=== PATIENT | female | born 1995 | race Caucasian/White ===

== ENCOUNTER 2022-12-12 03:10 | Emergency (ER) | payer OTHER, SELFPAY ==
[2022-12-12 03:17] VITALS: BP 127/65; PULSE 98; RESP 22; TEMP 37.7; O2SAT 100; BMI 24.9
--- NOTE | 2022-12-12 03:20 | ED.GENADULT ---
HPI - General Adult General Chief complaint: Recheck/Abnormal Lab/Rx Stated complaint: post-op bleed Time Seen by Provider: 12/12/22 03:20 Source: patient Mode of arrival: EMS Limitations: no limitations History of Present Illness HPI narrative: Patient is a 27-year-old female who yesterday underwent a plastic surgery to include liposuction and a tummy tuck and also muscular abdominal repair. She is a binder in place. She is 2 drains. She states that she has been bleeding over the past couple hours. She is having some significant discomfort but this is not new. She attempted to get hold of the operative provider but no one called her back. Related Data Allergies Allergy/AdvReac Type Severity Reaction Status Date / Time No Known Drug Allergies Allergy Verified 12/12/22 04:55 Review of Systems Constitutional Constitutional: Reports system reviewed and no additional complaints, except as documented Gastrointestinal Gastrointestinal: Reports system reviewed and no additional complaints, except as documented Integumentary/Breasts Skin/Breast: Reports system reviewed and no additional complaints, except as documented Neurologic Neurologic: Reports system reviewed and no additional complaints, except as documented Hematologic/Lymphatic On Anticoagulants: No Exam Initial Vital Signs Initial Vital Signs: Vital Signs Temperature 99.9 F H 12/12/22 03:17 Pulse Rate 98 H 12/12/22 03:17 Respiratory Rate 22 12/12/22 03:17 Blood Pressure 127/65 12/12/22 03:17 Pulse Oximetry 100 12/12/22 03:17 Oxygen Delivery Method Room Air 12/12/22 03:17 Const General: cooperative, comfortable and No ill appearing HENAL Head: normal to inspection and normocephalic GI Inspection: normal to inspection Other: Abdominal binder in place. DARA drains coming from each side of the lower abdomen. Skin Other: Surgical incisions covered with clean bandages. We does seem to be some oozing coming from the DARA drains in the lower abdomen. Extrem General: capillary refill normal Course Orders Ordered: Discontinued Medications Hydrocodone Bitart/Acetaminophen (Hydrocodone/Acet 5/325 Tablet) 1 tab PO NOW ONE Stop: 12/12/22 04:40 Last Admin: 12/12/22 04:44 Dose: 1 tab Documented By: ALEXANDER Vital Signs Vital signs: Vital Signs - 8 hr 12/12/22 03:17 12/12/22 06:15 Temperature 99.9 F H Pulse Rate 98 H 97 H Respiratory Rate 22 16 Blood Pressure 127/65 125/79 Pulse Oximetry 100 100 Oxygen Delivery Method Room Air Room Air Medical Decision Making MDM Narrative Medical decision making narrative: It appears that the patient has been oozing from the DARA sites in the lower abdomen. No fevers. The rest of her surgical bandages appear well and clean and intact. She was observed here in the emergency department for an extended period of time without any apparent continued bleeding. The patient was able to get in touch with the operative provider who gave her instructions. The drains appear to be working appropriately. We will discharge patient home to continue with postoperative instructions given to her. She was given return precautions. She expressed understanding and agreement. Discharge Plan Departure Patient Disposition: Home Clinical Impression: Post-operative haemorrhage Activity Restrictions/Additional Instructions: Recommend that you follow all of the postoperative instructions given to you by the surgeon who performed the procedures. Keep all of your scheduled medical appointments. Return to the emergency department for new or worsening symptoms. Stand Alone Forms: Patient Portal/API
[2022-12-12] MEDS: HYDROCODONE/ACET 5/325 TABLET 1 TAB PO (04:44)
--- NOTE | 2022-12-12 05:40 | PC.NURSE ---
SPAR CAP BEVELER note: Called and left [address] Selby her surgeon.
[2022-12-12 06:15] VITALS: BP 125/79; PULSE 97; RESP 16; O2SAT 100
== END 2022-12-12 06:15 | disposition home or self-care (01) ==
PROVIDERS: Emergency Provider Emergency Medicine
DX: L76.22 Postprocedural hemorrhage of skin and subcutaneous tissue following other procedure (principal)
CPT/HCPCS: 99283

== ENCOUNTER → 2024-02-21 09:42 | Outpatient (CLI) | payer OTHER, SELFPAY ==
[2024-02-21 10:20] LABS: Add Manual Diff / Slide Review NO; Basophils Absolute Auto 0 /uL (0-100); Basophils Percent Auto 0.6 % (0-2); Eosinophils Absolute Auto 100 /uL (0-450); Eosinophils Percent Auto 1.8 % (2-4); Hematocrit 42.7 % (36-46); Hemoglobin 14.8 g/dL (12.0-16.0); Lymphocytes Absolute Auto 1900 /uL (1100-4500); Lymphocytes Percent Auto 39.1 % (25-40); Mean Corpuscular HGB Conc 34.7 % (30-36); Mean Corpuscular Hemoglobin 32.2 PG (26-34); Monocytes Absolute Auto 300 /uL (0-900); Neutrophils Absolute Auto 2500 /uL (1500-7000); Neutrophils Percent Auto 51.5 % (50-75); Platelet Count 235 X10^3/uL (150-400); Red Blood Cell Count 4.59 X10^6/uL (4.0-5.2); Red Cell Distribution Width 12.3 % (11.6-14.8); White Blood Cell Count 4.8 X10^3/uL (4.5-11.0)
[2024-02-21 10:46] LABS: Alanine Aminotransferase 21 IU/L (<35); Albumin 4.7 g/dL (3.5-5.0); Albumin Globulin Ratio 1.7 (1.0-2.8); Alkaline Phosphatase 45 U/L (38-126); Aspartate Aminotransferase 23 IU/L (14-36); BUN Creatinine Ratio 16.9 (6-22); Bilirubin Total 0.7 mg/dL (0.2-1.3); Blood Urea Nitrogen 14 mg/dL (7-17); C-Reactive Protein Quant < 0.5 mg/dL (<1.0); Calcium 9.6 mg/dL (8.4-10.2); Carbon Dioxide 23 mmol/L (22-32); Chloride 106 mmol/L (98-107); Cholesterol 130 mg/dL (140-199); Estimated Glomerular Filt Rate > 60 mL/min (>60); Globulin 2.8 g/dL (1.7-4.1); Glucose 87 mg/dL (70-100); HDL Cholesterol 44 mg/dL (40-60); HEMOLYSIS < 15 (0-50); LDL Cholesterol Calculated 62 mg/dL (<100); Magnesium 1.9 mg/dL (1.6-2.3); Potassium 4.1 mmol/L (3.4-5.1); Sodium 137 mmol/L (137-145); Total Protein 7.5 g/dL (6.3-8.2); Triglycerides 118 mg/dL (35-150)
[2024-02-21 10:53] LABS: Erythrocyte Sedimentation Rate 2 MM/HR (0-20)
[2024-02-21 10:59] LABS: Free T3, Triiodothyronine Free 3.23 pg/mL (2.77-5.27); Free T4, Direct Thyroxine 0.82 ng/dL (0.78-2.19); T4 Total Thyroxine 6.21 ug/dL (5.5-11.0)
[2024-02-21 11:12] LABS: TSH w/ Reflex to FT4 2.77 uIU/mL (0.47-4.68)
[2024-02-22 07:36] LABS: Thyroid Peroxidase Antibodies <9 IU/mL (0-34); Triiodothyronine T3 Total 94 ng/dL (71-180)
[2024-02-22 19:36] LABS: Anti Thyroglobulin Antibody <1.0 IU/mL (0.0-0.9)
[2024-02-26 18:36] LABS: ANA Screen, IFA Negative (.)
[2024-02-27 18:37] LABS: Triiodothyronine T3 Reverse 11.5 ng/dL (.)
== END ==
PROVIDERS: PCP Family Medicine; Referring Provider Family Medicine; Visit Provider Family Medicine
DX: M25.40 Effusion, unspecified joint (principal); Z82.49 Family history of ischemic heart disease and other diseases of the circulatory system; R00.2 Palpitations
CPT/HCPCS: 36415; 80053; 80061; 83735; 84436; 84439; 84443; 84480; 84481; 84482; 85025; 85651; 86038; 86140; 86376; 86800

== ENCOUNTER → 2024-02-22 08:22 | Outpatient (CLI) | payer OTHER, SELFPAY ==
[2024-02-22 10:15] LABS: Ketones (Beta-Hydroxybutyrate) < 0.20 mmol/L (<0.27)
[2024-02-23 16:12] LABS: Insulin Level Total 7.8 uIU/mL (2.6-24.9)
== END ==
PROVIDERS: PCP Family Medicine; Referring Provider Family Medicine; Visit Provider Family Medicine
DX: M25.40 Effusion, unspecified joint (principal); R00.2 Palpitations; Z82.49 Family history of ischemic heart disease and other diseases of the circulatory system; E16.2 Hypoglycemia, unspecified
CPT/HCPCS: 82009; 83525; 84206; 84681

== ENCOUNTER → 2024-03-02 07:54 | Outpatient (CLI) | payer OTHER, SELFPAY | LOC: CAR 07:55 | PROVIDERS: PCP Family Medicine; Referring Provider Family Medicine; Visit Provider Family Medicine | DX: R42 Dizziness and giddiness (principal); R00.2 Palpitations | CPT/HCPCS: 93246 ==

== ENCOUNTER → 2024-03-22 16:47 | Outpatient (CLI) | payer OTHER, SELFPAY ==
--- NOTE | 2024-03-22 16:48 | DI.MRI.S_ITS ---
PROCEDURE: MR HEAD/BRAIN WO CON INDICATIONS: migraines, headaches TECHNIQUE: Noncontrast axial T1 spin echo, axial T2 fast spin echo, sagittal and axial FLAIR, coronal T2 fast spin echo, axial gradient echo, axial diffusion and ADC through the brain. COMPARISON: None. FINDINGS: Image quality: Excellent. CSF Spaces: Basal cisterns are patent. No extra-axial fluid collections. Ventricles are normal in size and shape. Brain: No intracranial masses or hemorrhage. There is a small chronic right anterolateral frontal lobe infarct. There are a few small regions of FLAIR signal elevation within the subcortical white matter of the left posterolateral frontal lobe as well as the left mid levy radiata. Sin/white matter interface is normal. Brainstem appears normal. Diffusion-weighted images demonstrate no acute infarct. No chronic ischemic insults. Normal intravascular flow voids are present. Skull and face: Calvarium has normal marrow signal. Orbits appear normal. Sinuses: Sinuses and mastoids are clear. IMPRESSION: 1. Small chronic right frontal lobe infarct. 2. Mild degree of nonspecific white matter disease within the left frontal lobe and levy radiata. Differential considerations include migraines, diabetes mellitus, vasculitides, and demyelinating disorders, such as multiple sclerosis. Dictated by: Eric Patterson M.D. on 03/23/2024 at 9:11 Approved by: Eric Patterson M.D. on 03/23/2024 at 9:14
== END ==
LOC: MRI 16:47
PROVIDERS: PCP Family Medicine; Referring Provider Family Medicine; Visit Provider Family Medicine
DX: G43.909 Migraine, unspecified, not intractable, without status migrainosus (principal); Z86.73 Personal history of transient ischemic attack (TIA), and cerebral infarction without residual deficits
CPT/HCPCS: 70551

== ENCOUNTER → 2024-04-06 12:50 | Outpatient (CLI) | payer OTHER, SELFPAY ==
--- NOTE | 2024-04-14 09:33 | DIET.OUTPTC ---
Dietary Outpatient Consultation Note Consultation Date: 04/06/2024 Assessment: 29 y F referred to dietitian for hypoglycemia. Jessica reports symptoms of hypoglycemia including feeling shaky, night sweats. Reports constant migraines/headaches. Symptoms for more than 14 yrs. Got a CGM earlier in February for 14 days. Was helpful in identifying times BG was dropping and she ate protein+carb snack to help balance it. Identified BG trends, noting lows below 70: 7-8am, 9-10a, nightly 9-10p, some overnight hypoglycemic events. Received results from brain MRI and is going to neurologist. Used to eat typical 3 meals/d and snacks as needed. Now eats q2-3 hrs. Feels this has helped reduce incidents of lows, but not eliminate them. With increase in snacks, has noted unwanted weight gain. Has family hx of obesity and DM. Is concerned about weight gain and health. Diet recall: 7-8a drop Eats breakfast: coffee with 1 tbsp sugar and 1/4 c plain half and half, 2 eggs, 3-4 sausage, blueberries, 1/2 of whole wheat Greek muffin 9am-apple and pb workout 11am-yogurt w/ honey, blueberries, flaxseed 12-1p lunch, leftovers 3p-seeds, raisins, peanuts,orange juice 5-6p- dinner - CHO, protein, veg Ht: 5 ft 4 in Wt: 165 lb 2 oz (77.167 kg) BMI: 28.3 UBW: 65.771 kg on 12/12/22, 74.899 kg on 02/21/24 Nutrition Diagnosis: Nutrition related knowledge deficit r/t limited formal nutrition educ, needing help managing lows aeb assessment Interventions: -Reviewed appropriate snacks and Rule of 15s for treating lows -Discussed nutrient dense snacks for raising BG d/t pt concerns and physical activity -Reviewed data from her Anya trial in February - explained role of nutrition w/ BG Goals- rule of 15s, nutrient dense snacks, continue activity, will share data from anya w/ libreview, Monitoring/Evaluations: f/u for dexcom placement Electronically Signed by: Dimple Colbert 04/14/24 09:33 Clinical Dietitian [address] [address]
== END ==
LOC: DIET 12:50
PROVIDERS: PCP Family Medicine; Referring Provider Family Medicine
DX: E16.2 Hypoglycemia, unspecified (principal); G43.909 Migraine, unspecified, not intractable, without status migrainosus; Z71.3 Dietary counseling and surveillance; R00.2 Palpitations; Z82.49 Family history of ischemic heart disease and other diseases of the circulatory system
CPT/HCPCS: 97802

== ENCOUNTER → 2024-04-18 12:26 | Outpatient (CLI) | payer OTHER, SELFPAY ==
--- NOTE | 2024-05-11 08:02 | DIET.OUTPTC ---
Dietary Outpatient Consultation Note Consultation Date: 04/18/2024 Assessment: 29 y F referred to dietitian for hypoglycemia. Jessica is here for a CGM sample placement and nutrition f/u. Reports orange juice in morning time to prevent morning hypoglycemia has been helpful. Pt needs to get needles for her BG meter at home to have as secondary BG check. Per PCP note, pt referred to neurology and also may be referred to endo. Nutrition Diagnosis: (initial dx) Nutrition related knowledge deficit r/t limited formal nutrition educ, needing help managing lows aeb assessment Interventions: Reviewed CGM use and equipment Discussed when to check blood sugars using finger stick Reviewed low blood sugar signs/symptoms and treatment options Provided education for self-administration of CGM placement Addressed additional questions pt has regarding food for lows, rule of 15s, and appropriate CHO amounts at meals Monitoring/Evaluations: f/u for dexcom report review Electronically Signed by: Dimple Colbert 05/11/24 08:02 Clinical Dietitian [address] [address]
== END ==
PROVIDERS: PCP Family Medicine; Referring Provider Family Medicine
DX: E16.2 Hypoglycemia, unspecified (principal); Z71.3 Dietary counseling and surveillance
CPT/HCPCS: 97803

== ENCOUNTER → 2024-05-24 12:56 | Outpatient (CLI) | payer OTHER, SELFPAY ==
--- NOTE | 2024-05-25 14:12 | DIET.OUTPTC ---
Dietary Outpatient Consultation Note Consultation Date: 05/24/2024 Assessment: 29 y F referred to dietitian for hypoglycemia. Jessica reports significant reduction in hypoglycemia incidents. Previous session's handout has been helpful for building a meal. Is having an increase in fibrous carb and nonstarchy vegetable at lunch and dinner that seems to prevent lows in afternoon. Charles Mix juice first thing in morning continues to help prevent lows in the morning. Additionally, new bedtime snack of 1 rice cake with nut butter, 1 tsp honey has been helpful for more restful sleep. Exercise has been moved to the afternoon and having lunch beforehand helps maintain BG. Is unable to sign into dexcom accounts to share data. Reports BG mostly stayed stable 80-110s. Is still interested in having a CGM to continue to adjust dietary patterns to prevent hypoglycemia. Discussed that if pt is able to recover account (can contact their IT), I can invite her to share her data with me and we can identify if there are lows. Discussed over the counter options and cost. Notes weight has been stable, before she had been continuing to gain weight. Reports low energy around 3-5p but no hypoglycemic symptoms and no lows when had CGM. Discussed changing timing of afternoon snack to provide boost. Diet recall: -3 sausage, eggs, ww belarusian muffin -quinoa, meat, beans, nonstarchy vegs (3 CHO) -mosotho yogurt snack as needed or small fajita/burrito -protein, fibrous CHO, veg (~3 CHO) -1 rice cake + nut butter + 1tsp honey Nutrition Diagnosis: (initial dx - improved) Nutrition related knowledge deficit r/t limited formal nutrition educ, needing help managing lows aeb assessment Interventions: -Discussed timing and content of afternoon snack for best energy -Reviewed plate method for meals and CHO portion sizes -Discussed sharing CGM data as able and process for getting CGM as well as over the counter options Monitoring/Evaluations: has appt with neurology in upcoming week Electronically Signed by: Dimple Colbert 05/25/24 14:12 Clinical Dietitian [address] [address]
== END ==
LOC: DIET 12:56
PROVIDERS: PCP Family Medicine; Referring Provider Family Medicine
DX: E16.2 Hypoglycemia, unspecified (principal); Z71.3 Dietary counseling and surveillance; Z82.49 Family history of ischemic heart disease and other diseases of the circulatory system; R00.2 Palpitations
CPT/HCPCS: 97803

== ENCOUNTER → 2024-10-03 09:04 | Outpatient (CLI) | payer OTHER, SELFPAY ==
[2024-10-03 10:25] LABS: Rheumatoid Factor < 8.6 IU/mL (<12.0)
[2024-10-03 11:26] LABS: Folate 5.9 ng/mL (2.76-20.0); Vitamin B12 564 pg/mL (239-931)
[2024-10-05 02:38] LABS: Angiotensin Converting Enzyme 103 U/L (14-82)
== END ==
PROVIDERS: PCP Family Medicine; Referring Provider Psychiatry & Neurology Neurology; Visit Provider Psychiatry & Neurology Neurology
DX: R90.89 Other abnormal findings on diagnostic imaging of central nervous system (principal); R90.82 White matter disease, unspecified
CPT/HCPCS: 36415; 82164; 82607; 82746; 86430

== ENCOUNTER → 2024-12-06 09:27 | Outpatient (CLI) | payer OTHER, SELFPAY ==
--- NOTE | 2024-12-06 09:33 | DI.RAD.S_ITS ---
PROCEDURE: XR CHEST 2V INDICATIONS: Other abnormal findings on diagnostic imaging of central nervous system, per notes TECHNIQUE: 2 views of the chest were acquired. COMPARISON: None. FINDINGS: No pneumothorax, no pleural effusion, no focal consolidation. Cardiopericardial silhouette and pulmonary vasculature within normal limits. Bones normal. IMPRESSION: Negative. If symptoms persist or worsen, or there is high clinical suspicion of thoracic abnormality, CT chest could be performed. Dictated by: Kj Patterson M.D. on 12/06/2024 at 12:50 Approved by: Kj Patterson M.D. on 12/06/2024 at 12:52
[2024-12-07 04:39] LABS: Homocysteine 7.2 umol/L (0.0-14.5)
[2024-12-07 23:07] LABS: Activated Prot C Resistance 2.8 ratio (2.2-3.5); Antithrombin Activity 107 % (75-135); Antithrombin Antigen 99 % (72-124); Protein C-Functional 120 % (73-180); Protein S-Functional 112 % (63-140)
[2024-12-27 09:36] LABS: Cardiolipin IgA Negative (.)
== END ==
PROVIDERS: PCP Family Medicine; Referring Provider Psychiatry & Neurology Neurology; Visit Provider Psychiatry & Neurology Neurology
DX: R90.89 Other abnormal findings on diagnostic imaging of central nervous system (principal); R74.8 Abnormal levels of other serum enzymes; Z86.73 Personal history of transient ischemic attack (TIA), and cerebral infarction without residual deficits
CPT/HCPCS: 36415; 71046; 81240; 83090; 83520; 85300; 85301; 85303; 85306; 86147; 86148

== ENCOUNTER 2025-02-01 15:27 | Emergency (ER) | payer OTHER, SELFPAY ==
[2025-02-01 15:31] VITALS: BP 143/98; PULSE 89; RESP 18; TEMP 36.6; O2SAT 99; BMI 30.9
[2025-02-01] MEDS: TET,DIPH,PERTUSS(ACELL),VAC/PF 0.5 ML SYRINGE IM (16:00)
--- NOTE | 2025-02-01 16:05 | ED.WOUNDLAC ---
HPI - Wound/Laceration <Arelis Cartagena PA-C - Last Filed: 02/01/25 19:13> General Chief Complaint: Wound/Laceration Stated Complaint: Right leg upper thigh laceration Time Seen by Provider: 02/01/25 15:44 Source: patient Mode of arrival: Ambulatory History of Present Illness HPI narrative: Ms. Long is a pleasant 29-year-old female with a past medical history PFO, CVA, migraines who presents to the emergency department for a right upper thigh laceration that occurred prior to arrival. Patient accidentally cut herself with a box turner. She is unsure of her last Tdap. She now has a 2 cm gaping laceration on the lateral right thigh. Bleeding is controlled. She takes baby aspirin, no other blood thinners. No other injuries. Related Data Home Medications ?Medication ?Instructions ?Recorded ?Confirmed cholecalciferol (vitamin D3) 125 125 mcg PO DAILY 02/17/24 11/17/24 mcg (5,000 unit) capsule aspirin 81 mg tablet,delayed 81 mg PO DAILY 10/03/24 11/17/24 release (Adult Aspirin Regimen) amitriptyline 25 mg tablet 25 mg PO DAILY 11/17/24 11/17/24 Previous Rx's ?Medication ?Instructions ?Recorded blood-glucose sensor (Dexcom G7 #9 ea 03/17/24 Sensor device) blood-glucose,sheet heater,cont #1 ea 03/17/24 (Dexcom G7 [employer] Operations Specialist) rizatriptan 10 mg tablet See Rx Instructions PO .COMPLEX 08/31/24 #10 tabs Allergies Allergy/AdvReac Type Severity Reaction Status Date / Time No Known Drug Allergies Allergy Verified 11/17/24 10:36 Review of Systems <Arelis Cartagena PA-C - Last Filed: 02/01/25 19:13> Review of Systems ROS Unobtainable: All systems reviewed & are unremarkable except as noted in HPI and below Patient History <Arelis Cartagena PA-C - Last Filed: 02/01/25 19:13> Medical History Migraines Headache Gout Hypoglycemia Surgical History Anesthesia Hx of abdominoplasty History of cholecystectomy Family History Father Arthritis Grandmother Diabetes mellitus Hypertension Social History Smoking Status: Never smoker Smoking Status: Never smoker Exam <Arelis Cartagena PA-C - Last Filed: 02/01/25 19:13> Narrative Exam Narrative: GENERAL: 29 year old patient appears stated age. Well-developed patient, in no acute distress. Tearful. HEAD: Atraumatic. Normocephalic. CARDIOVASCULAR: Regular rate RESPIRATORY: ?Nonlabored respirations. ?Speaking in clear, full sentences. ?Clear to auscultation. Breath sounds equal bilaterally. No wheezes, rales, or rhonchi. ? EXTREMITIES: 2cm linear, gaping proximal lateral right thigh lac. Bleeding controlled. SubQ tissue visualized, no muscle. NEURO: AOx3. ?Clear speech. ?Moves all 4 extremities appropriately. SKIN: Warm, dry. No rashes. R thigh lac. Initial Vital Signs Initial Vital Signs: Vital Signs Temperature 98 F 02/01/25 15:31 Pulse Rate 89 02/01/25 15:31 Respiratory Rate 18 02/01/25 15:31 Blood Pressure 143/98 H 02/01/25 15:31 Pulse Oximetry 99 02/01/25 15:31 Oxygen Delivery Method Room Air 02/01/25 15:31 <Leigh Ann Bertrand MD - Last Filed: 02/03/25 19:18> Initial Vital Signs Initial Vital Signs: Vital Signs Temperature 98 F 02/01/25 15:31 Pulse Rate 89 02/01/25 15:31 Respiratory Rate 18 02/01/25 15:31 Blood Pressure 143/98 H 02/01/25 15:31 Pulse Oximetry 99 02/01/25 15:31 Oxygen Delivery Method Room Air 02/01/25 15:31 Procedures <Arelis Cartagena PA-C - Last Filed: 02/01/25 19:13> Laceration Repair Laceration 1: Site: lower extremity (lateral, proximal thigh) Side (If applicable): right Size (cm): 2 Description: linear Depth: simple, single layer Local Anesthetic: lidocaine 1% and with epi Amount of anesthesia used (mL): 5 Pre-repair: wound explored, irrigated extensively (Cleansed with a Betadine) and deep structures intact Skin layer closed with: nylon Skin layer suture size: 4-0 Number of sutures: 3 Course <Arelis Cartagena PA-C - Last Filed: 02/01/25 19:13> Orders Ordered: Discontinued Medications Bacitracin (Bacitracin Oint 0.9 Gm Pckt) 1 applic TOP NOW ONE Stop: 02/01/25 17:23 Last Admin: 02/01/25 17:30 Dose: 1 applic Documented By: RB Diphtheria/Tetanus/Acell Pertussis (Tet,Diph,Pertuss(Acell),Vac/Pf 0.5 Ml Syringe) 0.5 ml IM .ONCE ONE Stop: 02/01/25 15:55 Last Admin: 02/01/25 16:00 Dose: 0.5 ml Documented By: RB Vital Signs Vital signs: Vital Signs - 8 hr 02/01/25 15:31 02/01/25 18:08 Temperature 98 F 97.7 F Pulse Rate 89 81 Respiratory Rate 18 18 Blood Pressure 143/98 H 143/104 H Pulse Oximetry 99 95 Oxygen Delivery Method Room Air Room Air <Leigh Ann Bertrand MD - Last Filed: 02/03/25 19:18> Orders Ordered: Discontinued Medications Bacitracin (Bacitracin Oint 0.9 Gm Pckt) 1 applic TOP NOW ONE Stop: 02/01/25 17:23 Last Admin: 02/01/25 17:30 Dose: 1 applic Documented By: RB Diphtheria/Tetanus/Acell Pertussis (Tet,Diph,Pertuss(Acell),Vac/Pf 0.5 Ml Syringe) 0.5 ml IM .ONCE ONE Stop: 02/01/25 15:55 Last Admin: 02/01/25 16:00 Dose: 0.5 ml Documented By: RB Vital Signs Vital signs: Vital Signs - 8 hr 02/01/25 15:31 02/01/25 18:08 Temperature 98 F 97.7 F Pulse Rate 89 81 Respiratory Rate 18 18 Blood Pressure 143/98 H 143/104 H Pulse Oximetry 99 95 Oxygen Delivery Method Room Air Room Air MDM - Wound/Laceration <Arelis Cartagena PA-C - Last Filed: 02/01/25 19:13> Medical Records Attestation: I reviewed the patient's medical records. MDM Narrative Medical decision making narrative: 29-year-old female with a past medical history PFO, CVA, migraines who presents to the emergency department for a right upper thigh laceration that occurred prior to arrival. Differential diagnosis includes but isn't limited to laceration, contamination, etc. On exam patient is in no acute distress, nontoxic appearing, vital signs appropriate. She has a 2 cm linear gaping laceration in the right lateral thigh. She will benefit from suture closure. Tdap was updated. We will anesthetize, irrigate and cleanse wound and repair using sutures. Three simple interrupted sutures were used to reapproximate the wound. Patient tolerated the procedure extremely well. Bacitracin and nonadherent dressing were applied. Discussed proper wound care, signs and symptoms infection, suture removal in 8-10 days. Patient verbalized understanding of all information and is agreeable with the plan. Blood pressure slightly elevated during ED stay, recommended patient follow up with her PCP for further blood pressure check, also to recheck her blood pressure when she is relaxed. ED return precautions discussed. She is agreeable with the plan and stable for discharge home. Discharge Plan Departure Patient Disposition: Home Clinical Impression: Laceration of right thigh Qualifiers: Encounter type: initial encounter Qualified Code(s): S71.111A - Laceration without foreign body, right thigh, initial encounter Instructions: DI for Laceration Repair Activity Restrictions/Additional Instructions: Dear Ms. Long, Thank you for coming to the emergency department. I am very sorry that you sustained a laceration to her right thigh today. You did incredibly well with the laceration repair. Today you had a laceration to your right thigh. We have placed 3 sutures. They need to be removed in 8-10 days. You may do this in your doctor's office, the [id number], or here if necessary. Please keep the dressing on your wound clean, dry, and intact for the next 24 hours. After this time, you may remove the dressing and gently clean the wound with soap and water, then pat dry. Keep the wound clean and covered. Avoid soaking the wound in any water such as a bath, pool, or the ocean. If you develop any signs of wound infection such as increased redness, pus drainage, streaking redness, or fevers, please return to the ER immediately for evaluation. Once sutures are removed and the wound has healed, apply sunscreen daily to reduce the appearance of scars. We updated your tetanus shot today. Please follow up with your primary care doctor within the next 2-3 days for ER follow-up. (If you do not have a PCP you can call [phone]. ?to schedule an appointment with an [facility] Primary Care Provider) IF YOU DEVELOP ANY NEW OR WORSENING SYMPTOMS, RETURN TO THE ER! Please read the attached instructions, they highlight more specific treatments and interventions for you at home. Thank you for letting me participate in your care, Arelis Cartagena PA-C Prescriptions: No Action cholecalciferol (vitamin D3) 125 mcg (5,000 unit) capsule 125 mcg PO DAILY aspirin [Adult Aspirin Regimen] 81 mg tablet,delayed release (DR/EC) 81 mg PO DAILY amitriptyline 25 mg tablet 25 mg PO DAILY (DME) Dexcom G7 [employer] Operations Specialist Misc See Rx Instructions .Route Qty: 1 0RF Rx Instructions: to be used with sensor (DME) Dexcom G7 Sensor Device See Rx Instructions .Route Qty: 9 0RF Rx Instructions: 1 sensor every 10 days rizatriptan 10 mg tablet See Rx Instructions PO .COMPLEX Qty: 10 0RF Rx Instructions: take 1 tab at onset of headache; if no relief may repeat 1 tab after at least 2 hrs; max = 3 tabs/24 hr PO Referrals: Nikki Crocker MD [Primary Care Provider, Family Practice] Stand Alone Forms: Patient Portal/API ED Sign-out <Leigh Ann Bertrand MD - Last Filed: 02/03/25 19:18> [facility] Attestation: I was immediately available in the department for consultation throughout this patient's visit. Leigh Ann Bertrand MD
[2025-02-01] MEDS: BACITRACIN OINT 0.9 GM PCKT 1 APPLIC TOP (17:30)
[2025-02-01 18:08] VITALS: BP 143/104; PULSE 81; RESP 18; TEMP 36.5; O2SAT 95
== END 2025-02-01 18:12 | disposition home or self-care (01) ==
PROVIDERS: Emergency Provider Physician Assistant; PCP Family Medicine
DX: S71.111A Laceration without foreign body, right thigh, initial encounter (principal); W26.9XXA Contact with unspecified sharp object(s), initial encounter; Z23 Encounter for immunization
CPT/HCPCS: 12001; 90471; 99283; 90715